=== PATIENT | female | born 1950 | race Caucasian/White ===

== ENCOUNTER 2017-12-12 04:48 | Day surgery (SDC) | payer OTHER ==
[2017-12-06 15:09] VITALS: BMI 38.0
--- NOTE | 2017-12-11 11:32 | HISTORY & PHYSICAL EXAMINATION ---
DATE OF ADMISSION: 12/12/2017 SUBJECTIVE: Donna comes in followup. She was seen in the [facility] office on 12/04/2017 for preoperative history and physical examination. Please refer to her chart for further details. She has continued pain in the wrist. Pain is both in the region of the plate as well as the ulnar aspect of the wrist. She is status post pinning of wrist done at [facility], [place] with subsequent revision ORIF by Dr. Charlie Xiong with volar plate in 2016. She has continued pain. PAST MEDICAL HISTORY: 1. COPD, on oxygen. 2. Asthma. 3. Hiatal hernia. 4. Obstructive sleep apnea. 5. Hypothyroidism. 6. Heart attack 1-1/2 years ago. 7. History of acute renal failure due to dehydration. 8. History of MRSA in the nose 5 years ago. 9. History of PTSD. 10. Anxiety and depression. 11. On 2 liters of oxygen. PAST SURGICAL HISTORY: 1. Status post pinning of her right wrist done earlier by orthopedic with subsequent revision by Dr. iXong with volar plate 2015. 2. Neck surgery x2. 3. Appendectomy. 4. . 5. Tracheostomy. ALLERGIES: MOBIC, FLEXERIL, ALEVE CAUSING GI UPSET, INDOCIN. OBJECTIVE: PHYSICAL EXAMINATION: HEART: Regular rate and rhythm. LUNGS: Clear to auscultation, but coarse breath sounds bilaterally. EXTREMITIES: Right wrist exam, tenderness to the lower aspect of the wrist. She also has tenderness over the ulnar aspect of the wrist as well. Decreased motion of the wrist was seen. Well-healed surgical incision. ASSESSMENT: 1. Retained hardware, right wrist, symptomatic. 2. Multiple medical comorbidities including chronic obstructive pulmonary disease on oxygen. PLAN: I discussed findings and treatment. We discussed other cardiac clearance and pulmonary clearance. At this point, recommendations for regional block with sedation rather than general anesthesia. I discussed with her in detail and my recommendation is to proceed with regional block with sedation if at all possible rather than general anesthesia, we will defer to anesthesia. We will refer her to further for preadmission testing. I will plan for surgical intervention on 12/12/2017. She understands the risks and benefits of surgery can be substantial including cardiac comorbidities as well as possibility of inability to be weaned from the vent if general anesthesia was performed, also possibly pulmonary embolism, pulmonary complications, DVT, etc, she is understanding of these risks. The risks and benefits have been discussed including, but not limited to, risk of infection, nerve injury, stiffness, loss of motion, failure to improve, etc. Reasonable outcomes and options of treatment were discussed. An explanation of appropriate alternatives to the procedure that may be advantageous were discussed and their risks and benefits, as well as the risks and benefits of not proceeding with treatment. I offered to answer any additional inquiries concerning the treatment involved. All the patient's questions were answered. The patient is agreeable, understanding of the treatment plan and alternatives, and wishes to proceed with the treatment plan.
[~2017-12-12] VITALS: Ht 152.4 cm; Wt 90.0 kg
[~2017-12-12 04:48] MED LIST: ADVIN50/60 INH; APIX1TAB3 PO; AZIT250T PO; BUSP5TAB59 PO; FLV1 PO; FSM70 PO; GABA-113 PO; IPRA-64 INH; OXYC1CAP5 PO; OYST1TAB PO; PANT40TA PO; ROFL1TAB5 PO; SERT-234 PO; SPRIN/30 INH; SYN25 PO; TRAZ50TA35 PO; VNTHFA/IN INH
[2017-12-12 05:47] VITALS: BP 164/98; PULSE 63; TEMP 36.5; O2SAT 98; Ht 152.4 cm; Wt 90.0 kg
[2017-12-12] MEDS ORDERED: CEFAZOLIN 2000MG IV PUSH 15 ML IV SCH (06:00)
[2017-12-12] MEDS ORDERED: LACTATED RINGER'S 1000ML 1,000 ML IV SCH (06:00)
[2017-12-12] MEDS ORDERED: ROPIVACAINE 0.5% 5 MG/ML 30 ML VIAL ONE (06:23)
[2017-12-12] MEDS ORDERED: CLONIDINE HCL 100 MCG/ML SYRINGE ONE (06:23)
[2017-12-12] MEDS ORDERED: ONDANSETRON INJ 2 MG/ML 2 ML VIAL ONE (06:40)
[2017-12-12] MEDS ORDERED: LIDOCAINE HCL 2% 2 ML VIAL (20MG/ML) ONE (06:40)
[2017-12-12] MEDS ORDERED: PROPOFOL IV EMULSION 10 MG/ML 20 ML VIAL ONE ×3 (06:40→08:26)
[2017-12-12] MEDS ORDERED: MIDAZOLAM HCL 1 MG/ML 2ML VIAL ONE (06:41)
[2017-12-12] MEDS ORDERED: FENTANYL CITRATE INJ 50 MCG/1 ML 2 ML VIAL ONE ×2 (06:41→07:21)
--- NOTE | 2017-12-12 07:11 | History & Physical Bridge Note ---
H&P Re-Evaluation Bridge Note: I have examined the patient, reviewed the History & Physical and in the interval since the performance of the History & Physical I have noted the following changes of clinical significance: will plan for right wrist hardware removal No changes noted
--- NOTE | 2017-12-12 07:46 | Discharge Instructions ---
Discharge Instructions Date of Service Dec 12, 2017. Admission Reason for Admission: Right Wrist Retained Hardware Discharge Discharge Diagnosis / Problem: hardware removal right wrist Discharge Goals Goal(s): Decrease discomfort Activity Recommendations Activity Limitations: as noted below Lifting Limitations: no more than 5 pounds Exercise/Sports Limitations: rest today Shower/Bathe: keep incision dry (may remove dressing in 5 days, shower and re- apply a dry streile dressing) . Instructions / Follow-Up Instructions / Follow-Up [facility] : Hand /Wrist Instr. ACTIVITY RECOMMENDATIONS: Avoid lifting anything until your first post-operative visit. Keep your hand elevated above the level of your heart at all times. Elbow should be above the level of the heart, and hand kept above the elbow. ~ You may use a sling if necessary. Ice the affected extremity a minimum of 3-4 times a day, 20 minutes each time. SPECIAL CARE INSTRUCTIONS: * Your bandage should be left in place until seen in the office. * Some drainage onto the dressing may occur.~ This is normal. * If the bandage feels excessively tight, you may loosen the elastic bandage.~ Then call the physician's office for further instructions. * You should move your fingers regularly, making a fist and extending them, unless otherwise instructed. SPECIAL PRECAUTIONS: * If you notice increased drainage, fever over 101 degrees F. or severe, unremitting pain, call your physician/office at . * You may have been prescribed pain medication.~ If you experience nausea and/ or skin rash, discontinue this medication and contact our office for an alternative medication. Pain Medication: a. You will be prescribed pain medication upon discharge that should last till your first post-operative appointment. b. You may also take Advil, Ibuprofen or Aleve between medication doses if you do not have any contraindication to taking them. c. You may also take Advil, Ibuprofen, Aleve or Tylenol in place of your pain medication if the pain is tolerable. FOLLOW UP VISIT: If appointment is not already scheduled: Please call [facility] to make a follow-up appointment after your surgery at . Follow up appointment with Dr. Harper or his PA: 10-14 days Current Hospital Diet Patient's current hospital diet: Discharge Diet Recommended Diet: Regular Diet Pending Studies Studies pending at discharge: no Medical Emergencies . Who to Call and When: Medical Emergencies: If at any time you feel your situation is an emergency, please call 911 immediately. . Non-Emergent Contact Non-Emergency issues call your: Primary Care Provider Call Non-Emergent contact if: temperature is above 101.5 . "Provider Documentation" section prepared by John Etienne. . [place] Drug Monitoring Program Search Results: no issues identified
[2017-12-12] MEDS ORDERED: LIDOCAINE HCL 1% 20 ML VIAL ONE (07:47)
[2017-12-12] MEDS ORDERED: ONDANSETRON INJ 2 MG/ML 2 ML VIAL IV PRN (08:00)
[2017-12-12] MEDS ORDERED: ATROPINE SULFATE 0.1 MG/ML 5ML SYR IV PRN (08:00)
[2017-12-12] MEDS ORDERED: LABETALOL HCL IV 5 MG/ML 20ML IV PRN (08:00)
[2017-12-12] MEDS ORDERED: FLUMAZENIL 0.1 MG/1 ML 10 ML VIAL IV PRN (08:00)
[2017-12-12] MEDS ORDERED: NALOXONE HCL 0.4 MG/1 ML VIAL/CARP IV PRN (08:00)
[2017-12-12] MEDS ORDERED: EpHEDrine SULFATE INJ 50 MG/ML AMP IV PRN (08:00)
[2017-12-12] MEDS ORDERED: PHENYLEPHRINE 100MCG/ML 5ML SYR IV PRN (08:00)
[2017-12-12] MEDS ORDERED: MEPERIDINE HCL 25 MG/ML CARP IV PRN (08:00)
[2017-12-12] MEDS ORDERED: FENTANYL CITRATE INJ 50 MCG/1 ML 2 ML VIAL IV PRN (08:00)
--- NOTE | 2017-12-12 08:47 | [facility] Post Operative Brief Note ---
Immediate Operative Summary Operative Date Dec 12, 2017. Pre-Operative Diagnosis Symptomatic Retained Hardware, right wrist Post-Operative Diagnosis Symptomatic Retained Hardware, right wrist Procedure(s) Performed Right Wrist Hardware Removal Surgeon Dr. Harper Office Director Surgeon(s) none Estimated Blood Loss 10 cc Findings Consistent with Post-Op Diagnosis Specimens A: explanted hardware, right wrist Drains None Anesthesia Type MAC Spinal Regional Disposition Disposition: Recovery Room / PACU Overlapping Procedure I was immediately available: during the entire case
--- NOTE | 2017-12-12 09:10 | Anesthesiology Progress Note ---
Anesthesia Post Op Note Date & Time Dec 12, 2017 at 09:10 Vital Signs Pain Intensity: 0 Vital Signs Past 12 Hours Date Time Temp Pulse Resp B/P (MAP) Pulse Ox O2 Delivery O2 Flow Rate FiO2 12/12/17 09:05 36.4 72 18 102/63 95 Nasal Cannula 2 12/12/17 08:57 36.3 77 15 120/69 98 Nasal Cannula 2 12/12/17 08:55 36.3 77 18 123/77 97 Nasal Cannula 2 12/12/17 08:49 36.3 77 18 121/64 96 Nasal Cannula 2 12/12/17 05:47 36.5 63 22 164/98 (120) 98 Nasal Cannula 2 Notes Mental Status: alert / awake / arousable, participated in evaluation Pt Amnestic to Procedure: Yes Nausea / Vomiting: adequately controlled Pain: adequately controlled Airway Patency, RR, SpO2: stable & adequate BP & HR: stable & adequate Hydration State: stable & adequate Anesthetic Complications: no major complications apparent The patient did well. She is awake and comfortable in PACU.
[2017-12-12 09:14] VITALS: BP 93/56; PULSE 75; TEMP 36.5; O2SAT 98
--- NOTE | 2017-12-12 09:37 | OPERATIVE REPORT ---
DATE OF OPERATION: 12/12/2017 PREOPERATIVE DIAGNOSIS: Right wrist retained hardware, deep, volar plate. POSTOPERATIVE DIAGNOSIS: Right wrist retained hardware, deep, volar plate. PROCEDURE: Right wrist hardware removal, deep. SURGEON: Ru Harper MD HAND ORNAMENT MAKER: None. ANESTHESIA: Regional block with sedation. INDICATIONS: This is a 67-year-old female status post ORIF distal radius fracture. She presents with painful hardware. The risks and benefits have been discussed including, but not limited to, risk of infection, nerve injury, stiffness, loss of motion, failure to improve, etc. Reasonable outcomes and options of treatment were discussed. An explanation of appropriate alternatives to the procedure that may be advantageous were discussed and their risks and benefits, as well as the risks and benefits of not proceeding with treatment. I offered to answer any additional inquiries concerning the treatment involved. All the patient's questions were answered. The patient is agreeable, understanding of the treatment plan and alternatives, and wishes to proceed with the treatment plan. DESCRIPTION OF PROCEDURE: I injected lidocaine in the local area to supplement the block. Tourniquet was applied and inflated at 220. I made a longitudinal incision in line on the patient's previous scar over the FCR tendon sheath. Dissection was carried down through the skin and subcutaneous tissue. The FCR tendon sheath was sharply incised. The FCR was swept in an ulnar direction. The base of the sheath was incised and the FPL was swept in an ulnar direction as well. The plate was identified. This was cleared off of soft tissue. I removed the screws and they came out easily without difficulty. The plate was removed in full. The screw holes were curetted clean and the incision was irrigated. Pronator was closed with 2-0 Vicryl. Tourniquet was let down, hemostasis was obtained with bipolar electrocautery. Skin was closed with 4-0 Monocryl in a subcutaneous fashion and a running 3-0 Prolene stitch was used on the skin. Steri-Strips were applied and a soft dressing was applied. Patient was sent to the PACU in stable condition. Postop plan will be range of motion as tolerated and a dressing change at 5 days. I attest to the content of the Intraoperative Record and any orders documented therein. Any exception s are noted below.
[2017-12-12 09:50] VITALS: BP 117/70; PULSE 77; TEMP 36.7; O2SAT 99
== END 2017-12-12 10:10 | disposition home or self-care (01) ==
LOC: C.ACU 04:48
PROVIDERS: ATTEND Orthopaedic Surgery
DX: T84.298A Other mechanical complication of internal fixation device of other bones, initial encounter (principal); Y83.1 Surgical operation with implant of artificial internal device as the cause of abnormal reaction of the patient, or of later complication, without mention of misadventure at the time of the procedure; J44.9 Chronic obstructive pulmonary disease, unspecified; G47.33 Obstructive sleep apnea (adult) (pediatric); K21.9 Gastro-esophageal reflux disease without esophagitis; K44.9 Diaphragmatic hernia without obstruction or gangrene; E66.9 Obesity, unspecified; E03.9 Hypothyroidism, unspecified; F43.10 Post-traumatic stress disorder, unspecified; F32.9 Major depressive disorder, single episode, unspecified; Z99.89 Dependence on other enabling machines and devices; Z99.81 Dependence on supplemental oxygen; Z86.14 Personal history of Methicillin resistant Staphylococcus aureus infection; Z90.49 Acquired absence of other specified parts of digestive tract